=== PATIENT | female | born 1960 | race Caucasian/White ===

== ENCOUNTER 2021-02-27 06:46 | Emergency (ER) | payer OTHER, SELFPAY ==
--- NOTE | ~2021-02-27 | US_ITS ---
EXAMINATION: US venous doppler [facility] DATE: 02/27/2021 07:54 INDICATION: Left lower limb swelling. TECHNIQUE: Grayscale ultrasound images without and with compression and Doppler ultrasound images of the left lower extremity veins were obtained. COMPARISON: None. FINDINGS: The visualized portions of left common femoral vein, profunda (deep) femoral vein, femoral vein, popl iteal vein, peroneal veins, posterior tibial veins, and greater saphenous vein outflow are patent. IMPRESSION: 1. No deep venous thrombosis. Reviewed, dictated and finalized at [facility].
[2021-02-27 06:49] VITALS: BP 219/99; PULSE 108; RESP 18; TEMP 36.9; O2SAT 100
[2021-02-27 06:56] VITALS: BP 199/100
[2021-02-27 07:13] VITALS: BP 181/101; PULSE 91; RESP 17; O2SAT 98
--- NOTE | 2021-02-27 07:59 | ED.LOWEXIN ---
HPI - Extremity Injury (Lower) General Chief Complaint: Extremity Injury, Lower Stated Complaint: left leg swollen with red spot and calf pain Time Seen by Provider: 02/27/21 07:05 History of Present Illness HPI Narrative: Patient is a 60-year-old female who presents ER with left lower extremity swelling. Ongoing over the last week. Associated with calf pain. Has discomfort when she walks. No known trauma or injury. Denies chest pain or shortness of breath. No previous history of DVT. Reports she wore compressive socks yesterday which seems to help with the edema. No fevers or chills or sweats. [place] there is some slight redness yesterday but is abated. Related Data Allergies Allergy/AdvReac Type Severity Reaction Status Date / Time No Known Allergies Allergy Mild Unverified 10/06/07 06:52 NKDA,NKFA Allergy Unknown Uncoded 09/30/07 13:53 Review of Systems Review of Systems: All systems reviewed & are unremarkable except as noted in HPI and below Constitutional: Constitutional: Denies chills, Denies fever(s) and Denies weakness Cardiovascular: Cardiovascular: Denies chest pain and Denies radiating jaw, neck or arm pain Respiratory: Respiratory: Denies cough, Denies dyspnea and Denies wheezing Musculoskeletal: Musculoskeletal: Denies back pain and Denies arthralgias Comments: Leg edema with left calf pain PMFSH Past Medical History Medical History (Updated 02/27/21 @ 08:06 by Remington Hernandez MD) Healthy female adult Surgical History Surgical History (Updated 02/27/21 @ 08:01 by Remington Hernandez MD) No pertinent past surgical history Social History Social History Gender identity (if verbalized by the patient): Female Sexual Orientation (if Verbalized by the Patient): Straight or Heterosexual Exam Narrative: Exam Narrative: GENERAL: Well-appearing, well-nourished, and in no acute distress. HEAD: Normocephalic, atraumatic. CHEST: Clear to auscultation. No respiratory distress. HEART: Regular rate and rhythm. Normal peripheral pulses EXTREMITIES: Normal range of motion. 1+ edema. Tenderness left calf. SKIN: Warm, dry, no rash. NEURO: Alert and oriented x3. PSYCH: Normal mood and affect. Course Course Emergency Course: No DVT. Recommend continue to wear compressive sock. Will give on-call PCP phone number as pt does not have a PCP. Vital Signs Vital signs: Vital Signs Temperature 98.5 F 02/27/21 06:49 Pulse Rate 108 H 02/27/21 06:49 Respiratory Rate 18 02/27/21 06:49 Blood Pressure 219/99 H 02/27/21 06:49 Pulse Oximetry 100 02/27/21 06:49 Temperature 98.5 F 02/27/21 06:49 Pulse Rate 91 02/27/21 07:13 Respiratory Rate 17 02/27/21 07:13 Blood Pressure 181/101 H 02/27/21 07:13 Pulse Oximetry 98 02/27/21 07:13 MDM - Extremity Injury (Lower) Imaging Data Radiologist's impression: ITS Impressions Venous Doppler Study 02/27/21 07:54 IMPRESSION: 1. No deep venous thrombosis. Discharge Plan Discharge Clinical Impression: Calf pain, Edema Patient Disposition: Home, Self-Care Condition: Stable Instructions: Leg Edema (ED) Additional Instructions: The pain in your leg may be related to some edema. Continue to wear your compressive stockings at home to help with this. You may also elevate your leg. Increase your exercise. Take Tylenol and ibuprofen as needed for calf pain. Please follow-up with a primary care physician for further treatment and evaluation. Follow-up/Referrals: Cl Boston MD [Physician] - 1 Week PHYSICIAN NOT ON STAFF,NONSTAFF [Primary Care Provider] -
[2021-02-27 08:48] VITALS: BP 165/82; PULSE 78; RESP 20; O2SAT 98
== END 2021-02-27 08:48 | disposition home or self-care (01) ==
LOC: ANHED 08:10
PROVIDERS: Emergency Provider Emergency Medicine; PCP Internal Medicine
DX: R60.0 Localized edema (principal)
CPT/HCPCS: 93971; 99284

== ENCOUNTER 2023-10-09 14:38 | Emergency (ER) | payer SELFPAY ==
--- NOTE | ~2023-10-09 | US_ITS ---
US venous doppler [facility] DATE: 10/09/2023 15:44 INDICATION: Pain and swelling of right calf TECHNIQUE: Real-time imaging and Doppler analysis of the veins of the right lower extremity COMPARISON: None FINDINGS: There is spontaneous and phasic flow and normal augmentation and color flow signal of the c ommon and superficial femoral and popliteal veins of the right lower extremity. The right peroneal veins and proximal posterior tibial veins are not visualized, likely due to edema . IMPRESSION: No evidence of deep venous thrombosis of the right lower extremity; peroneal and proximal posterior tibial veins are obscured, likely due to edema Reviewed, dictated and finalized at [facility]. Reviewed, dictated and finalized at location [facility]. [employer]
[2023-10-09 14:45] VITALS: BP 191/95; PULSE 99; RESP 16; TEMP 36.7; O2SAT 100
[2023-10-09] MEDS: HYDROcodone/acetaminophen (*CRX) 5-325 MG TABLET 1 TAB PO (16:09)
[2023-10-09 16:23] LABS: Basophils Percent Auto 0.5 % (0.2-1.2); Eosinophils Percent Auto 0.7 % (0-4.4); Hematocrit 35.7 % (37.0-47.0); Hemoglobin 11.3 g/dL (12.0-15.0); Immature Granulocyte Absolute 0.01 K/mm3 (0.00-0.031); Immature Granulocyte Percent A 0.2 % (0-0.5); Lymphocytes Absolute Auto 1.24 K/mm3 (0.9-3.2); Lymphocytes Percent Auto 21.9 % (18.3-44.2); Mean Corpuscular HGB Conc 31.7 g/dl (32-36); Mean Corpuscular Hemoglobin 26.6 pg (26-34); Mean Platelet Volume 10.3 fl (7.4-10.4); Monocytes Absolute Auto 0.4 K/mm3 (0.1-0.6); Monocytes Percent Auto 7.1 % (2.6-8.5); Neutrophils Absolute Auto 3.9 K/mm3 (1.3-6.7); Neutrophils Percent Auto 69.6 % (45.5-73.1); Platelet Count Result 322 k/mm3 (150-375); Red Blood Count 4.25 M/mm3 (4.2-5.4); Red Cell Distribution Width 14.5 % (11.5-14.5); White Blood Count 5.7 K/mm3 (4.5-10.0)
--- NOTE | 2023-10-09 16:24 | ED.GENADULT ---
HPI - General Adult General Chief complaint: Extremity Injury, Lower Stated complaint: right leg swelling Time Seen by Provider: 10/09/23 15:28 History of Present Illness HPI narrative: Katya Leblanc is a 62 y/o female who presents with reports of noticing pain/ swelling to her right lower extremity pain to her calf that started yesterday. Denies any trauma/ known injury to her leg. Related Data Allergies Allergy/AdvReac Type Severity Reaction Status Date / Time No Known Allergies Allergy Mild Verified 10/09/23 17:44 NKDA,NKFA Allergy Unknown Unknown Uncoded 10/09/23 17:44 Review of Systems Review of Systems: CONSTITUTIONAL: Denies fever, chills, or sweats. EYES: Denies visual changes, redness, or discharge. ENT: Denies rhinorrhea, congestion, sore throat, or otalgia. CARDIOVASCULAR: Denies chest pain, palpitations, or edema. RESPIRATORY: Denies cough or dyspnea. GASTROINTESTINAL: Denies abdominal pain, nausea, vomiting, or diarrhea. GENITOURINARY: Denies dysuria or hematuria. SKIN: Denies rash or itching. MUSCULOSKELETAL: Denies back pain, Complains of pain / swelling to right lower leg that started yesterday NEUROLOGIC: Denies headache, numbness, dizziness, or weakness. PSYCHIATRIC: Denies anxiety or depression. PMFSH Past Medical History Medical History Healthy female adult Surgical History Surgical History No pertinent past surgical history Social History Social History Gender identity (if verbalized by the patient): Female Sexual Orientation (if Verbalized by the Patient): Straight or Heterosexual Exam Narrative: GENERAL: Well-appearing, well-nourished, and in no acute distress. HEAD: Normocephalic, atraumatic. EYES: PERRLA and EOMI. ENT: Nares clear, no rhinorrhea or epistaxis. Mucous membranes moist. Oropharynx without tonsillar hypertrophy exudate or other lesions. NECK: Supple. No adenopathy or masses. No carotid bruits or JVD CHEST: Clear to auscultation. No respiratory distress. No wheezes rales or rhonchi HEART: Regular rate and rhythm. No murmur heard. Normal peripheral pulses. ABDOMEN: Soft, nontender, nondistended, normal active bowel sounds. EXTREMITIES: Moderate swelling to the right lower extremity/ warmth and pain to calf SKIN: Warm, dry, no rash. NEURO: No focal deficits. Alert and oriented x3. PSYCH: Normal mood and affect. Course Vital Signs Vital signs: Vital Signs Temperature 36.7 C 10/09/23 14:45 Pulse Rate 99 10/09/23 14:45 Respiratory Rate 16 10/09/23 14:45 Blood Pressure 191/95 H 10/09/23 14:45 Pulse Oximetry 100 10/09/23 14:45 Oxygen Delivery Room Air 10/09/23 14:45 Temperature 36.7 C 10/09/23 14:45 Pulse Rate 99 10/09/23 14:45 Respiratory Rate 16 10/09/23 14:45 Blood Pressure 191/95 H 10/09/23 14:45 Pulse Oximetry 100 10/09/23 14:45 Oxygen Delivery Room Air 10/09/23 14:45 Medical Decision Making MDM Narrative Medical decision making narrative: Moderate swelling to the right lower extremity/ warmth and pain to calf Patient states this started yesterday Concern for DVT US of lower extremity did not show a DVT however the peroneal and proximal posterior tibial veins were obscured, likely due to edema? Collaborated with Dr. Hernandez regarding the inconclusive US results - plan to check basic labs and a Ddimer - DDIMER is elevated will prohpylactically treat as a DVT if it is negative can assume no DVT Cbc-stable CMP- Potassium 3.2 - replenishing DDimer - 1.66 Patient denies any chest pain/shortness of breath not tachycardic/ not hypoxic With the elevated DDimer will treat for DVT, however pt does not have a PCP to follow up with Called Dr. Barbosa who will accept to follow up with pt tomorrow but he is requesting a CTA of the lower extremity
[2023-10-09 16:33] LABS: Alanine Aminotransferase 12 U/L (6-35); Albumin Level 3.8 g/dL (3.5-5.1); Alkaline Phosphatase 87 U/L (38-126); Anion Gap 7 mmol/L (8-16); Aspartate Amino Transferase 37 U/L (14-36); Bilirubin,Total 0.4 mg/dL (0.2-1.3); Blood Urea Nitrogen 13 mg/dL (7-17); Calcium 9.2 mg/dL (8.4-10.2); Carbon Dioxide 29 mmol/L (22-30); Chloride 104 mmol/L (98-107); Estimated CRCL calculation 95 ml/min; Estimated Glomerular Filt Rate > 60; Glucose 129 mg/dL (65-110); Potassium 3.2 mmol/L (3.4-5.0); Sodium 140 mmol/L (137-145)
[2023-10-09 16:44] LABS: D Dimer 1.66 ug/mL (<0.48)
[2023-10-09] MEDS: APIXABAN 5 MG TABLET 10 MG BY MOUTH (17:31)
--- NOTE | 2023-10-09 17:33 | PC.NURSE ---
patient refuses to take oral K+, states she has some at home that are smaller and will take them when she gets there
--- NOTE | 2023-10-09 17:33 | PCCCNOTE ---
Call received requesting assistance paying for [employer]. Staff and record shows pt with [employer] insurance however, pt states she doesn't have any insurance right now. Pt given both 30 day free trial and $10 copay cards. She states her pharmacy is helpfull with obtaining prescriptions at an affordable rate. She is aware that she can access their website and apply for assistance directly from the [employer] co. also.
--- NOTE | 2023-10-09 17:36 | PC.NURSE ---
patient requesting to discuss with provider the order for CTA as she does not have any health insurance. provider aware of that and refusal of K+
[2023-10-09 17:43] VITALS: BP 194/85; PULSE 66; RESP 20; TEMP 36.6; O2SAT 100
== END 2023-10-09 17:58 | disposition home or self-care (01) ==
PROVIDERS: Emergency Provider Nurse Practitioner Family
DX: R60.0 Localized edema (principal); R79.81 Abnormal blood-gas level; R79.9 Abnormal finding of blood chemistry, unspecified
CPT/HCPCS: 36415; 80053; 85025; 85380; 93971; 99284; A9270